=== PATIENT | female | born 1970 | race Caucasian/White ===

== ENCOUNTER 2022-11-02 21:24 | Emergency (ER) | payer BC, OTHER ==
[2022-11-02 21:35] VITALS: BP 168/88; PULSE 113; RESP 20; TEMP 97.9; BMI 27.4
[2022-11-02] MEDS ORDERED: SODIUM CHLORIDE 0.9% 500 ML INFUS.BAG IV ONE (22:19)
[2022-11-02 23:09] LABS: BASO % 0.3 % (0-2.0); EOS % 0.8 % (0-4.5); HEMATOCRIT 42.4 % (32.4-45.2); LYMPH % 13.1 % (8-40); MCH 26.1 pg (25.7-33.7); MEAN PLT VOLUME 9.1 fl (7.5-11.1); MONO % 4.6 % (3.8-10.2); NEUT % 81.2 % (42.8-82.8); PLATELET COUNT 129 10^3/uL (134-434); RBC 5.36 M/mm3 (3.60-5.2); RDW 14.4 % (11.6-15.6)
[2022-11-03 00:24] LABS: CALCIUM 9.1 mg/dL (8.5-10.1)
[2022-11-03 00:25] LABS: ALBUMIN 3.6 g/dl (3.4-5.0); MAGNESIUM 2.1 mg/dL (1.8-2.4)
[2022-11-03 00:27] LABS: BLOOD UREA NITROGEN 13.7 mg/dL (7-18)
[2022-11-03 00:28] LABS: CREATININE 0.8 mg/dL (0.55-1.3)
[2022-11-03 00:29] LABS: TOT PROT 7.1 g/dl (6.4-8.2)
[2022-11-03 00:36] LABS: BILIRUBIN,TOTAL 0.1 mg/dL (0.2-1)
== END 2022-11-03 00:38 | disposition home or self-care (01) ==
LOC: JER 21:24
DX: R40.4 Transient alteration of awareness (principal)
CPT/HCPCS: 36415; 80053; 83690; 83735; 85025; 93005; 93010; 99284-25